=== PATIENT | female | born 1990 | race African-American/Black ===

== ENCOUNTER 2022-03-12 20:35 | Emergency (ER) | payer OTHER, SELFPAY ==
[2022-03-12] MEDS ORDERED: Ibuprofen 200 MG TAB ONE (22:11)
== END 2022-03-12 22:20 | disposition home or self-care (01) ==
LOC: CSHERS 20:35
DX: S16.1XXA Strain of muscle, fascia and tendon at neck level, initial encounter (principal); V43.52XA Car driver injured in collision with other type car in traffic accident, initial encounter; Y92.410 Unspecified street and highway as the place of occurrence of the external cause
CPT/HCPCS: 99283